=== PATIENT | female | born 2005 | race Caucasian/White ===

== ENCOUNTER 2024-10-04 00:26 | Emergency (ER) | payer SELFPAY ==
[2024-10-04 00:49] LABS: #Basophils 0.05 10x3/uL (0.0-0.2); %Basophils 0.4 % (0.0-1.0); %Eosinophils 2.3 % (0.0-10.0); %Lymphocytes 42.8 % (28.0-48.0); %Monocytes 5.5 % (0.0-4.0); %Neutrophils 48.7 % (31.0-61.0); Hematocrit 40.2 % (36.0-47.0); Hemoglobin 13.6 g/dL (12.0-16.0); Mean Corpuscular HGB CONC 33.8 g/dL (32.0-36.0); Mean Corpuscular Volume 82.9 fL (78.0-98.0); Mean Platelet Volume 9.8 fL (7.4-10.4); Platelet Count 365 10x3/uL (130-400); RBC Distribution Width 12.7 % (11.5-14.5); Red Blood Cell (RBC) Count 4.85 mill/uL (4.00-5.20)
[2024-10-04 01:10] LABS: ALT (SGPT) 20 U/L (8-55); AST (SGOT) 19 U/L (5-34); Albumin 4.1 g/dL (3.5-5.0); Alkaline Phosphatase 81 U/L (40-100); Anion Gap 14 mmol/L (10-20); BUN (Urea Nitrogen) 8 mg/dL (7.0-18.7); Bilirubin, Total 0.3 mg/dL (0.2-1.2); Calc. Creatinine Clearance 0 mL/min (70-130); Calcium 9.3 mg/dL (7.8-10.44); Carbon Dioxide 22 mmol/L (22-29); Chloride 107 mmol/L (98-107); Estimated GFR 86; Globulin 3.3 g/dL (2.4-3.5); Glucose 75 mg/dL (70-105); Lipase 23 U/L (8-78); Potassium 3.5 mmol/L (3.5-5.1); Protein, Total 7.4 g/dL (6.0-8.3); Sodium 139 mmol/L (136-145)
[2024-10-04 01:35] LABS: Bacteria/HPF None Seen HPF (None Seen); Bilirubin Negative (Negative); Blood, Urine Negative (Negative); CAUTI Indications for Culture Dysuria,urgency,freq; Clarity Clear (Clear); Glucose, Urine (Dipstick) Normal (Negative); Ketone, Urine Negative (Negative); Leukocyte Negative Leu/uL (Negative); Nitrite Negative (Negative); Protein, Urine (Dipstick) Negative (Neg-Trace); RBC/HPF 0-3 HPF (0-3); Specific Gravity, Urine 1.024 (1.002-1.036); Squamous Epithelial 0-3 HPF (0-3); Urobilinogen Normal mg/dL (Less than 2); WBC/HPF 0-3 HPF (0-3)
[2024-10-04 01:37] LABS: Pregnancy Test - Urine (BHCG) Negative (Negative); Pregu Control Background? CLEAR/WHITE (CLR/WHITE); Pregu Control Bar Appear? YES (CONTROL BAR); Specific Gravity 1.024 (1.002-1.036); Urine Culture Reflex No No
[2024-10-04] MEDS ORDERED: Dicyclomine 20 MG TAB ONE (01:40)
[2024-10-04] MEDS ORDERED: Ketorolac Tromethamine 30 MG (1 mL) VIAL ONE (01:40)
== END 2024-10-04 03:20 | disposition home or self-care (01) ==
LOC: ERS 00:26
DX: K80.50 Calculus of bile duct without cholangitis or cholecystitis without obstruction (principal); F17.290 Nicotine dependence, other tobacco product, uncomplicated
CPT/HCPCS: 36415; 76705; 80053; 81001; 81025; 83690; 85025; J1885

== ENCOUNTER 2024-10-05 16:25 | Emergency (ER) | payer SELFPAY ==
[~2024-10-05 16:25] MED LIST: Iopamidol-370 76% 500 ML MDV (1 ML CHARGE) ONE
[2024-10-05 17:50] LABS: #Basophils 0.05 10x3/uL (0.0-0.2); %Basophils 0.5 % (0.0-1.0); %Eosinophils 4.3 % (0.0-10.0); %Lymphocytes 37.4 % (28.0-48.0); %Monocytes 5.4 % (0.0-4.0); %Neutrophils 52.1 % (31.0-61.0); Hematocrit 37.2 % (36.0-47.0); Hemoglobin 12.1 g/dL (12.0-16.0); Mean Corpuscular HGB CONC 32.5 g/dL (32.0-36.0); Mean Corpuscular Hemoglobin 27.6 pg (25.0-35.0); Mean Corpuscular Volume 84.7 fL (78.0-98.0); Mean Platelet Volume 9.9 fL (7.4-10.4); Platelet Count 257 10x3/uL (130-400); RBC Distribution Width 12.8 % (11.5-14.5); Red Blood Cell (RBC) Count 4.39 mill/uL (4.00-5.20)
[2024-10-05 17:56] LABS: BHCG - Serum Negative (NEGATIVE); Pregs Control Background? CLEAR/WHITE (CLR/WHITE); Pregs Control Bar Appear? YES (CONTROL BAR)
[2024-10-05 18:03] LABS: ALT (SGPT) 16 U/L (8-55); AST (SGOT) 16 U/L (5-34); Albumin 3.7 g/dL (3.5-5.0); Alkaline Phosphatase 61 U/L (40-100); Anion Gap 13 mmol/L (10-20); BUN (Urea Nitrogen) 12 mg/dL (7.0-18.7); Bilirubin, Total 0.3 mg/dL (0.2-1.2); Calc. Creatinine Clearance 0 mL/min (70-130); Carbon Dioxide 22 mmol/L (22-29); Chloride 109 mmol/L (98-107); Estimated GFR 125; Glucose 79 mg/dL (70-105); Lipase 11 U/L (8-78); Potassium 3.7 mmol/L (3.5-5.1); Protein, Total 6.7 g/dL (6.0-8.3); Sodium 140 mmol/L (136-145)
[2024-10-05] MEDS ORDERED: Ketorolac Tromethamine 30 MG (1 mL) VIAL ONE (18:30)
[2024-10-05] MEDS ORDERED: Ondansetron PF 4 MG/2 ML Vial ONE (18:30)
== END 2024-10-05 20:31 | disposition home or self-care (01) ==
LOC: ERS 16:25
DX: R10.11 Right upper quadrant pain (principal); F17.290 Nicotine dependence, other tobacco product, uncomplicated
CPT/HCPCS: 36415; 74177; 80053; 83690; 84703; 85025; 96374; 96375; J1885; J2405; Q9967

== ENCOUNTER 2025-08-20 20:23 | Emergency (ER) | payer OTHER ==
[2025-08-20 20:45] LABS: Pregnancy Test - Urine (BHCG) POSITIVE (Negative); Pregu Control Bar Appear? YES (CONTROL BAR)
[2025-08-20 20:46] LABS: Pregu Control Background? CLEAR/WHITE (CLR/WHITE)
[2025-08-20 20:52] LABS: Bacteria/HPF None Seen HPF (None Seen); CAUTI Indications for Culture Pregnancy; Glucose, Urine (Dipstick) Normal (Negative); Leukocyte Negative Leu/uL (Negative); Protein, Urine (Dipstick) 30 mg/dL (Neg-Trace); RBC/HPF 0-3 HPF (0-3); Specific Gravity, Urine 1.037 (1.002-1.036); WBC/HPF 0-3 HPF (0-3)
[2025-08-20 20:55] LABS: Urine Culture Reflex Yes Yes
[2025-08-20 22:17] LABS: #Basophils 0.04 10x3/uL (0.0-0.2); #Eosinophils 0.15 10x3/uL (0.0-0.7); #Monocytes 0.65 10x3/uL (0.11-0.59); #Neutrophils 7.76 10x3/uL (1.40-6.50); %Basophils 0.3 % (0.0-1.0); %Eosinophils 1.2 % (0.0-10.0); %Lymphocytes 28.6 % (21.0-51.0); %Monocytes 5.4 % (0.0-10.0); %Neutrophils 64.3 % (42.0-75.0); Hematocrit 34.9 % (36.0-47.0); Hemoglobin 11.6 g/dL (12.0-16.0); Mean Corpuscular Hemoglobin 28.0 pg (27.0-31.0); Mean Corpuscular Volume 84.3 fL (78.0-98.0); Platelet Count 314 10x3/uL (130-400); Red Blood Cell (RBC) Count 4.14 mill/uL (4.20-5.40); White Blood Cell (WBC) Count 12.08 10x3/uL (4.8-10.8)
[2025-08-20 22:48] LABS: ALT (SGPT) 12 U/L (Less than 34); AST (SGOT) 30 U/L (11-34); Albumin 4.0 g/dL (3.1-4.5); Alkaline Phosphatase 58 U/L (40-110); Anion Gap 17 mmol/L (10-20); BUN (Urea Nitrogen) 8 mg/dL (7.0-18.7); Bilirubin, Total 0.3 mg/dL (0.3-1.2); Calc. Creatinine Clearance 0 mL/min (70-130); Calcium 9.4 mg/dL (7.8-10.44); Carbon Dioxide 17 mmol/L (22-29); Chloride 107 mmol/L (98-107); Globulin 2.9 g/dL (2.4-3.5); Glucose 75 mg/dL (70-105); Potassium 3.4 mmol/L (3.5-5.1); Sodium 138 mmol/L (136-145)
== END 2025-08-20 23:30 | disposition home or self-care (01) ==
LOC: ERS 20:23
DX: O99.281 Endocrine, nutritional and metabolic diseases complicating pregnancy, first trimester (principal); E86.0 Dehydration; O99.891 Other specified diseases and conditions complicating pregnancy; R10.32 Left lower quadrant pain; O99.331 Smoking (tobacco) complicating pregnancy, first trimester; F17.290 Nicotine dependence, other tobacco product, uncomplicated; Z3A.13 13 weeks gestation of pregnancy
CPT/HCPCS: 76856; 80053; 81001; 81025; 84702; 85025; 86900; 86901; 87086; 96360